=== PATIENT | female | born 1995 | race Caucasian/White ===

== ENCOUNTER 2018-01-15 15:25 | Emergency (ER) | payer MEDICAID ==
[~2018-01-15] VITALS: Ht 182.9 cm; Wt 63.3 kg
[~2018-01-15 15:25] MED LIST: CLIN-80 PO
[2018-01-15] MEDS ORDERED: PANT-47 PO (17:56)
[2018-01-15] MEDS ORDERED: CYCL-1 PO (17:56)
[2018-01-15 18:11] VITALS: BP 124/70
== END 2018-01-15 18:16 | disposition home or self-care (01) ==
LOC: ER 15:25
DX: R51 Headache (principal); M54.2 Cervicalgia; R10.13 Epigastric pain; Z90.49 Acquired absence of other specified parts of digestive tract; Z88.8 Allergy status to other drugs, medicaments and biological substances; Z79.899 Other long term (current) drug therapy; Z98.51 Tubal ligation status
CPT/HCPCS: 99283

== ENCOUNTER 2018-06-04 12:13 | Emergency (ER) | payer MEDICAID ==
[~2018-06-04] VITALS: Ht 1686.6 cm; Wt 52.4 kg
[~2018-06-04 12:13] MED LIST changes: -CLIN-80 PO; +CLIN300C85 PO; +CYCL-1 PO; +PANT-47 PO
[2018-06-04 14:33] LABS: BASOPHILS % (AUTO) 0.3 % (0-1); EOSINOPHILS # (AUTO) 0.1 X10'3 (0-0.9); HEMATOCRIT 42.3 % (35.0-45.0); HEMOGLOBIN 13.9 g/dl (12.0-16.0); LYMPHOCYTES # (AUTO) 1.7 X10'3 (1.1-4.8); LYMPHOCYTES % (AUTO) 28.1 % (21-51); MEAN CORPUSCULAR HEMOGLOBIN 29.6 PG (27.0-31.0); MEAN CORPUSCULAR VOLUME 89.7 FL (78-98); MEAN PLATELET VOLUME 8.8 FL (7.4-10.4); MONOCYTES # (AUTO) 0.4 X10'3 (0-0.9); NEUTROPHILS % (AUTO) 63.6 % (42-75); PLATELET COUNT 230 X10'3 (140-440); RED BLOOD COUNT 4.71 X10'6 (4.20-5.60); RED CELL DISTRIBUTION WIDTH 12.5 % (11.5-14.5); WHITE BLOOD COUNT 6.2 X10'3 (4.5-11.0)
[2018-06-04 14:37] LABS: CLARITY,URINE TURBID (Clear); COLOR,URINE YELLOW (Yellow); GLUCOSE, URINE NEGATIVE (Neg); KETONES,URINE 40 mg/dl (Neg); LEUKOCYTE ESTERASE ,URINE TRACE (Neg); NITRITES, URINE NEGATIVE (Neg); OCCULT BLOOD,URINE MODERATE (Neg); PROTEIN,URINE 30 mg/dl (Neg)
[2018-06-04 14:46] LABS: ALANINE AMINOTRANSFERASE 22 U/L (12-78); ALBUMIN/GLOBULIN RATIO 1.1 (1.1-1.5); ALKALINE PHOSPHATASE 37 IU/L (46-116); ANION GAP 5 (8-16); ASPARTATE AMINO TRANSFERASE 11 U/L (10-37); BILIRUBIN,TOTAL 0.8 MG/DL (0.1-1.0); BLOOD UREA NITROGEN 21 MG/DL (7-18); BUN/CREATININE RATIO 26.3 (6.6-38.0); CHLORIDE 101 MMOL/L (99-107); GLUCOSE 94 MG/DL (70-104); POTASSIUM 3.6 MMOL/L (3.5-5.1); SODIUM 135 MMOL/L (135-145); TOTAL CARBON DIOXIDE 28.6 MMOL/L (24-32); TOTAL PROTEIN 7.8 G/DL (6.4-8.2); eGFR 88 ML/MIN
[2018-06-04 14:47] LABS: UA COLLECTION TYPE CLN CATCH MIDSTREAM; URINE AMPHETAMINE SCREEN POSITIVE (Neg); URINE BARBITUATE SCREEN NEGATIVE (Neg); URINE BENZODIAZEPINES SCREEN NEGATIVE (Neg); URINE CANNABINOID SCREEN NEGATIVE (Neg); URINE COCAINE SCREEN NEGATIVE (Neg); URINE METHADONE SCREEN NEGATIVE (Neg); URINE OPIATE SCREEN NEGATIVE (Neg); URINE PHENCYCLIDINE SCREEN NEGATIVE (Neg)
[2018-06-04 14:53] LABS: MUCUS STRANDS FEW /LPF (Neg); SQUAMOUS EPITHELIAL CELL,UR MANY /LPF (FEW)
[2018-06-04 14:54] LABS: BACTERIA,URINE 4+ /HPF (Neg); RBC,URINE NONE SEEN /HPF (0-2); TRANSITIONAL EPI CELLS,URINE MODERATE /HPF
[2018-06-04 15:00] LABS: ETHANOL < 0.010 GM/DL (0.0-0.010)
[2018-06-04] MEDS: sulfamethoxazole/trimethoprim DS (800/160mg) tablet PO SCH ×2 (17:13→20:16)
[2018-06-04] MEDS ORDERED: PANT40TA4 PO (18:09)
[2018-06-04] MEDS ORDERED: CYCL-1 PO (18:09)
[2018-06-05] MEDS ORDERED: ibuprofen tablet 400 MG TABLET PO ONE (03:50)
[2018-06-05] MEDS ORDERED: cyclobenzaprine 10mg tablet PO PRN (07:10)
[2018-06-05] MEDS ORDERED: pantoprazole 40mg Tablet.DR PO SCH (08:00)
[2018-06-05 08:57] LABS: URINE HCG NEGATIVE (NEG)
[2018-06-05] MEDS: sulfamethoxazole/trimethoprim DS (800/160mg) tablet PO SCH ×2 (09:04→18:48)
[2018-06-05 21:26] VITALS: BP 95/63
== END 2018-06-05 21:29 ==
LOC: ER 12:13
DX: T48.1X2A Poisoning by skeletal muscle relaxants [neuromuscular blocking agents], intentional self-harm, initial encounter (principal); F15.10 Other stimulant abuse, uncomplicated; N39.0 Urinary tract infection, site not specified; F31.9 Bipolar disorder, unspecified; M41.9 Scoliosis, unspecified; Z98.51 Tubal ligation status; Z79.899 Other long term (current) drug therapy; Z88.8 Allergy status to other drugs, medicaments and biological substances; Z56.0 Unemployment, unspecified; Z59.0 Homelessness; Y92.9 Unspecified place or not applicable
CPT/HCPCS: 36415; 80053; 80305; 80320; 81001; 81025; 84443; 85025; 99285; A6222; A6446; A6449; J7030

== ENCOUNTER 2020-06-11 17:31 | Emergency (ER) | payer MEDICAID ==
[~2020-06-11] VITALS: Ht 185.4 cm; Wt 63.0 kg
[~2020-06-11 17:31] MED LIST changes: +BISA-155 PO; -CLIN300C85 PO; -CYCL-1 PO; +MAGN296S70 PO; -PANT-47 PO
[2020-06-11 17:39] VITALS: BP 120/78
[2020-06-11 18:17] LABS: URINE HCG NEGATIVE (NEG)
[2020-06-11 18:28] LABS: CLARITY,URINE CLOUDY (Clear); GLUCOSE, URINE NEGATIVE (Neg); KETONES,URINE NEGATIVE (Neg); LEUKOCYTE ESTERASE ,URINE SMALL (Neg); NITRITES, URINE NEGATIVE (Neg); OCCULT BLOOD,URINE LARGE (Neg); PROTEIN,URINE 30 mg/dl (Neg)
[2020-06-11 18:29] LABS: COLOR,URINE DARK YELLOW (Yellow); UA COLLECTION TYPE CLN CATCH MIDSTREAM
[2020-06-11 18:37] LABS: MUCUS STRANDS MANY /LPF (Neg); SQUAMOUS EPITHELIAL CELL,UR MODERATE /LPF (FEW); WBC,URINE 20-30 /HPF (0-4)
[2020-06-11 18:38] LABS: BACTERIA,URINE 4+ /HPF (Neg)
[2020-06-11 18:41] LABS: CAL OXALATE CRYSTALS 2+ /HPF (NEGATIVE); YEAST FEW /HPF (NEGATIVE)
== END 2020-06-11 19:59 | disposition left against medical advice (07) ==
LOC: ER 17:31
DX: R10.2 Pelvic and perineal pain (principal); Z53.21 Procedure and treatment not carried out due to patient leaving prior to being seen by health care provider
CPT/HCPCS: 81001; 81025; 87088

== ENCOUNTER 2020-06-13 12:05 | Emergency (ER) | payer MEDICAID ==
[~2020-06-13] VITALS: Ht 185.4 cm; Wt 64.3 kg
[2020-06-13 12:27] VITALS: BP 142/83
[2020-06-13 13:53] LABS: URINE HCG NEGATIVE (NEG)
[2020-06-13 14:07] LABS: CLARITY,URINE CLOUDY (Clear); COLOR,URINE YELLOW (Yellow); GLUCOSE, URINE NEGATIVE (Neg); KETONES,URINE TRACE mg/dl (Neg); LEUKOCYTE ESTERASE ,URINE MODERATE (Neg); NITRITES, URINE NEGATIVE (Neg); OCCULT BLOOD,URINE LARGE (Neg); PH,URINE 6.5 (4.8-8.0); PROTEIN,URINE 30 mg/dl (Neg)
[2020-06-13 14:20] LABS: UA COLLECTION TYPE VOIDED
[2020-06-13 14:23] LABS: WBC,URINE 50-100 /HPF (0-4)
[2020-06-13 14:24] LABS: BACTERIA,URINE 2+ /HPF (Neg); CAL OXALATE CRYSTALS 2+ /HPF (NEGATIVE); MUCUS STRANDS MANY /LPF (Neg); SQUAMOUS EPITHELIAL CELL,UR MANY /LPF (FEW)
[2020-06-13 14:25] LABS: TRICHOMONAS,URINE FEW /HPF (NEGATIVE)
[2020-06-13] MEDS ORDERED: ibuprofen tablet 400 MG TABLET PO ONE (14:40)
[2020-06-13] MEDS ORDERED: CefTRIAXone 250MG inj IM ONE (14:40)
[2020-06-13] MEDS ORDERED: CefTRIAXone 1000mg IM Kit (w/lidocaine diluent) IM ONE (14:50)
[2020-06-13] MEDS ORDERED: azithromycin 250mg tablet PO ONE (15:50)
[2020-06-13] MEDS ORDERED: penicillin G benzathine 1.2 million unit/2ml syringe IM ONE (15:55)
[2020-06-13] MEDS ORDERED: metroNIDAZOLE 500mg tablet PO ONE (15:55)
[2020-06-13] MEDS ORDERED: CEPH-572 PO (16:00)
[2020-06-13] MEDS ORDERED: IMIQ1CRE9 TOP (16:00)
[2020-06-13] MEDS ORDERED: METR500T PO (16:02)
[2020-06-13] MEDS ORDERED: IBUP-1985 PO (16:08)
== END 2020-06-13 16:29 | disposition home or self-care (01) ==
LOC: ER 12:05
DX: B07.8 Other viral warts (principal); A59.9 Trichomoniasis, unspecified; N39.0 Urinary tract infection, site not specified; N76.0 Acute vaginitis; F31.9 Bipolar disorder, unspecified; Z90.49 Acquired absence of other specified parts of digestive tract; Z98.51 Tubal ligation status; Z72.89 Other problems related to lifestyle; Z59.0 Homelessness; Z88.8 Allergy status to other drugs, medicaments and biological substances; Z79.899 Other long term (current) drug therapy
CPT/HCPCS: 36415; 81001; 81025; 86592; 87210; 87491; 87591; 96372; 99284; J0561; J0696; J3490

== ENCOUNTER 2021-06-14 14:42 | Emergency (ER) | payer MEDICAID ==
[~2021-06-14] VITALS: Ht 185.4 cm; Wt 58.0 kg
[~2021-06-14 14:42] MED LIST changes: +IBUP-1985 PO; +IMIQ1CRE9 TOP
[2021-06-14 14:49] VITALS: BP 129/75
== END 2021-06-14 21:48 | disposition left against medical advice (07) ==
LOC: ER 14:43
DX: M79.643 Pain in unspecified hand (principal); Z53.21 Procedure and treatment not carried out due to patient leaving prior to being seen by health care provider

== ENCOUNTER 2021-08-21 14:31 | Emergency (ER) | payer MEDICAID ==
[~2021-08-21] VITALS: Ht 185.4 cm; Wt 60.5 kg
[2021-08-21 14:43] VITALS: BP 120/71
== END 2021-08-21 21:57 | disposition left against medical advice (07) ==
LOC: ER 14:32
DX: Z11.3 Encounter for screening for infections with a predominantly sexual mode of transmission (principal); F31.9 Bipolar disorder, unspecified; Z56.0 Unemployment, unspecified
CPT/HCPCS: 99281

== ENCOUNTER 2021-09-21 16:06 | Emergency (ER) | payer MEDICAID ==
[~2021-09-21] VITALS: Ht 180.3 cm; Wt 68.2 kg
[2021-09-21 16:22] VITALS: BP 109/64
[2021-09-21] MEDS ORDERED: CefTRIAXone 500MG IM Kit w/LIDOcaine IM ONE (16:30)
[2021-09-21] MEDS ORDERED: azithromycin 250mg tablet PO ONE (16:30)
[2021-09-21 17:07] LABS: URINE HCG NEGATIVE (NEG)
[2021-09-21] MEDS ORDERED: IMIQ1CRE9 TOP (17:24)
[2021-09-21 17:44] LABS: UA COLLECTION TYPE CLN CATCH MIDSTREAM
[2021-09-21 17:45] LABS: CLARITY,URINE CLOUDY (Clear); COLOR,URINE YELLOW (Yellow); GLUCOSE, URINE NEGATIVE (Neg); KETONES,URINE NEGATIVE (Neg); OCCULT BLOOD,URINE NEGATIVE (Neg); PROTEIN,URINE NEGATIVE (Neg)
[2021-09-21 17:46] LABS: LEUKOCYTE ESTERASE ,URINE SMALL (Neg); NITRITES, URINE POSITIVE (Neg); UROBILINOGEN,URINE 0.2 E.U/dL (0.2-1.0)
[2021-09-21 17:59] LABS: BACTERIA,URINE 4+ /HPF (Neg); RBC,URINE 0-2 /HPF (0-2); SQUAMOUS EPITHELIAL CELL,UR MODERATE /LPF (FEW); WBC CLUMPS,URINE FEW /HPF (NEGATIVE)
[2021-09-21 18:29] LABS: HIV ANTIBODY 1&2 RAPID NON-REACTIVE (Neg)
== END 2021-09-21 17:45 | disposition home or self-care (01) ==
LOC: ER 16:07
DX: A63.0 Anogenital (venereal) warts (principal); Z87.440 Personal history of urinary (tract) infections; Z90.49 Acquired absence of other specified parts of digestive tract; Z98.51 Tubal ligation status; Z72.89 Other problems related to lifestyle; Z59.00 Homelessness unspecified; Z88.8 Allergy status to other drugs, medicaments and biological substances; Z79.899 Other long term (current) drug therapy
CPT/HCPCS: 36415; 81001; 81025; 86703; 87077; 87088; 87186; 87491; 87591; 96372; 99283; J0696

== ENCOUNTER 2022-02-25 08:54 | Emergency (ER) | payer MEDICAID ==
[~2022-02-25] VITALS: Ht 183.5 cm; Wt 69.5 kg
[2022-02-25 09:06] VITALS: BP 129/69
[2022-02-25] MEDS ORDERED: ACYC400T PO (10:29)
== END 2022-02-25 10:54 | disposition home or self-care (01) ==
LOC: ER 08:56
DX: A60.04 Herpesviral vulvovaginitis (principal); F31.9 Bipolar disorder, unspecified; Z87.440 Personal history of urinary (tract) infections; Z90.49 Acquired absence of other specified parts of digestive tract; Z98.51 Tubal ligation status; Z72.89 Other problems related to lifestyle; Z59.00 Homelessness unspecified; Z88.8 Allergy status to other drugs, medicaments and biological substances; Z79.899 Other long term (current) drug therapy
CPT/HCPCS: 99283

== ENCOUNTER 2022-07-15 10:06 | Emergency (ER) | payer MEDICAID ==
[~2022-07-15] VITALS: Ht 182.9 cm; Wt 57.0 kg
[2022-07-15] MEDS ORDERED: TETanus/Pertussis (Acell)/Diphther VAC/PF (Tdap-Adult) 0.5ml syringe IMVAC ONE (10:20)
[2022-07-15] MEDS ORDERED: diazepam inj 5 MG/ML inj. IV ONE (10:20)
[2022-07-15] MEDS: morphine 2 MG/ML inj. syringe IV PRN ×2 (10:36→12:20)
[2022-07-15] MEDS ORDERED: silver sulfadiazine cream 400gm jar TP SCH (11:55)
--- NOTE | 2022-07-15 12:00 | NUR ---
1st and 2nd degree dent to lower abd, monica area, and upper thighs. Blister to L labia.
[2022-07-15 12:35] VITALS: BP 126/92
--- NOTE | 2022-07-15 12:39 | NUR ---
Pt's friend's name and number. Cory Barillas [phone]
--- NOTE | 2022-07-15 12:45 | NUR ---
Report given to KLAUS Rangel at [facility].
--- NOTE | 2022-07-15 13:00 | NUR ---
Report given to KLAUS Chaudhry of the [facility].
== END 2022-07-15 13:04 | disposition short-term general hospital (02) ==
LOC: ER 10:06
DX: T21.12XA Burn of first degree of abdominal wall, initial encounter (principal); Z20.822 Contact with and (suspected) exposure to COVID-19; X10.0XXA Contact with hot drinks, initial encounter; Y93.89 Activity, other specified; Y92.89 Other specified places as the place of occurrence of the external cause
CPT/HCPCS: 16000; 87811; 90471; 90715; 96374; 96375; 96376; 99285; J2270; J3360; J7030